=== PATIENT | female | born 1965 | race Caucasian/White ===

== ENCOUNTER 2016-05-25 14:27 | Emergency (ER) | payer OTHER, MEDICAID ==
[2016-05-25 14:33] VITALS: RESP 16
[2016-05-25] MEDS ORDERED: ONDANSETRON 4 MG/2 ML VIAL IVP ONE ×2 (16:32→18:26)
[2016-05-25 16:52] LABS: COLOR YELLOW; LEUKOCYTE ESTERASE,URINE NEGATIVE (NEGATIVE); NITRITE,URINE NEGATIVE (NEGATIVE)
[2016-05-25 16:57] LABS: RBC,URINE 25-50 /hpf (0-3)
[2016-05-25 17:13] LABS: % IMMATURE GRANULYOCYTES 0.3 % (0.0-1.1); ABSOLUTE IMMATURE GRANULOCYTES 0.02 10^3/uL (0.00-0.10); ADD DIFF? NO; ADD MORPH? NO; ADD SCAN? NO; ATYPICAL LYMPHOCYTE FLAG 10 (0-99); FRAGMENT RBC FLAG 0 (0-99); HEMOGLOBIN 15.9 g/dL (12.6-16.3); LEFT SHIFT FLG 0 (0-99); LIPEMIA HEMOLYSIS FLAG 90 (0-99); MEAN CELL HEMOGLOBIN 30.8 pg (27.9-34.1); MEAN CELL HEMOGLOBIN CONCENTR. 34.6 g/dL (32.4-36.7); MEAN CELL VOLUME 89.1 fL (81.5-99.8); MEAN PLATELET VOLUME 9.8 fL (8.7-11.7); PLATELET CLUMPS FLAG 30 (0-99); PLATELET COUNT 345 10^3/uL (150-400); RED BLOOD CELL COUNT 5.16 10^6/uL (4.18-5.33); RED CELL DISTRIBUTION WIDTH 12.4 % (11.5-15.2)
[2016-05-25] MEDS ORDERED: fentaNYL 100 MCG/2 ML INJ IVP ONE (17:20)
[2016-05-25] MEDS ORDERED: fentaNYL 100 MCG/2 ML INJ ONE (17:21)
--- NOTE | 2016-05-25 17:21 | EDPHY ---
H & P Stated Complaint: abd pain continued post surgery, reinflammed after moving objects Time Seen by Provider: 05/25/16 16:20 HPI/ROS: CHIEF COMPLAINT: Abdominal pain, chronic abdominal pain HISTORY OF PRESENT ILLNESS: 6 months of left lower quadrant abdominal pain. This was gradual onset after this a laparotomy with small-bowel resection at outside facility. This was due to Crohn's disease. She reports chronic pain in this area of 6 months with multiple evaluations without definitive diagnosis. It comes and goes but never fully resolves. It is moderate to severe. It does not radiate. It is worse with palpation and ambulation. Some improvement rest and with pain medication. Nausea but no vomiting. No pelvic pain. No vaginal bleeding or discharge. CT scan less than 2 weeks ago was reportedly normal at outside facility. No other associated complaints or modifying factors REVIEW OF SYSTEMS: Constitutional: No fever, no chills Eyes: No visual changes ENT: No sore throat or difficulty swallowing Neck: No pain or stiffness Respiratory: No cough, no shortness of breath Cardiac: No chest pain Gastrointestinal: No nausea, no vomiting, left lower abdominal pain Genitourinary: No hematuria, no dysuria Musculoskeletal: No leg pain or swelling Skin: No rash Neurological: No headache, no numbness, no weakness Psychiatric: No depression EXAMINATION: General Appearance: Alert, no distress Head: normocephalic, atraumatic Eyes: Pupils equal and round, no conjunctival pallor or injection ENT, Mouth: Mucous membranes moist Neck: Normal inspection, supple, non-tender Respiratory: Lungs are clear to auscultation Cardiovascular: Regular rate and rhythm Gastrointestinal: Abdomen is soft. with mild tenderness of the left lower quadrant. No rebound or guarding. No tympany. No rigidity. There is a well- healed surgical incision consistent with laparotomy remotely. Back: non-tender, no bony abnormalities Neurological: A&O, nonfocal, normal gait Skin: Warm and dry, no rash Extremities: Nontender, no pedal edema Psychiatric: Mood and affect normal Differential Diagnoses: 1.Chronic abdominal pain 2. colitis 3. enteritis 4. abdominal wall strain 5. UTI MDM: Chronic left lower quadrant abdominal pain over the past 6 months in a patient with Crohn's disease. Nonacute abdominal exam. No nausea or vomiting. Labs are well within normal limits. Pain is significantly improved with IV medication. Discharge home with continued oral pain medication, oral antiemetic and recommendation follow up with the primary care physician and/or surgeon for further care. Patient spouse at bedside are comfortable with this plan. ED precautions discussed as well. - Personal History LMP (Females 10-55): Post Menopausal Current Tetanus/Diphtheria Vaccine: Yes Current Tetanus Diphtheria and Acellular Pertussis (TDAP): Yes - Medical/Surgical History Hx Asthma: No Hx Chronic Respiratory Disease: No Hx Diabetes: No Hx Cardiac Disease: No Hx Renal Disease: No Hx Cirrhosis: No Hx Alcoholism: No Hx HIV/AIDS: No Hx Splenectomy or Spleen Trauma: No Other PMH: PMH:chrons. PSH:bowel resctionx3, tonsels, adnoids, gallbladder, appy - Social History Smoking Status: Never smoked Constitutional: Initial Vital Signs Temperature (C) 97.7 F 05/25/16 14:30 Heart Rate 89 05/25/16 14:30 Respiratory Rate 16 05/25/16 14:30 Blood Pressure 146/74 H 05/25/16 14:30 O2 Sat (%) 97 05/25/16 14:30 O2 Delivery Mode Room Air Allergies/Adverse Reactions: codeine Allergy (Verified 05/25/16 14:33) Home Medications: Medication Instructions Recorded Fluocinolone Acetonide, Micro 05/25/16 Ondansetron Odt [Zofran Odt 4 mg 4 mg PO Q8HRS PRN 4 Days 05/25/16 (*)] oxyCODONE HCL/ACETAMINOPHEN 1 each PO Q4-6PRN PRN #20 tablet 05/25/16 [Percocet 5-325 mg Tablet] Medical Decision Making - Data Points Laboratory Results: Laboratory Results 05/25/16 17:00 05/25/16 17:00 05/25/16 05/25/16 17:00 16:44 WBC 7.91 10^3/uL (3.80-9.50) RBC 5.16 10^6/uL (4.18-5.33) Hgb 15.9 g/dL (12.6-16.3) Hct 46.0 % (38.0-47.0) MCV 89.1 fL (81.5-99.8) MCH 30.8 pg (27.9-34.1) MCHC 34.6 g/dL (32.4-36.7) RDW 12.4 % (11.5-15.2) Plt Count 345 10^3/uL (150-400) MPV 9.8 fL (8.7-11.7) Neut % (Auto) 59.5 % (39.3-74.2) Lymph % (Auto) 30.3 % (15.0-45.0) [place] % (Auto) 7.7 % (4.5-13.0) Eos % (Auto) 1.3 % (0.6-7.6) Baso % (Auto) 0.9 % (0.3-1.7) Nucleat RBC Rel Count 0.0 % (0.0-0.2) Absolute Neuts (auto) 4.71 10^3/uL (1.70-6.50) Absolute Lymphs (auto) 2.40 10^3/uL (1.00-3.00) Absolute Monos (auto) 0.61 10^3/uL (0.30-0.80) Absolute Eos (auto) 0.10 10^3/uL (0.03-0.40) Absolute Basos (auto) 0.07 10^3/uL (0.02-0.10) Absolute Nucleated RBC 0.00 10^3/uL (0-0.01) Immature Gran % 0.3 % (0.0-1.1) Immature Gran # 0.02 10^3/uL (0.00-0.10) Sodium 144 mEq/L (134-144) Potassium 3.8 mEq/L (3.5-5.2) Chloride 106 mEq/L (97-110) Carbon Dioxide 23 mEq/l (22-31) Anion Gap 15 mEq/L (8-16) BUN 8 mg/dL (7-23) Creatinine 0.7 mg/dL (0.6-1.0) Estimated GFR > 60 Glucose 87 mg/dL (70-100) Calcium 9.5 mg/dL (8.5-10.4) Total Bilirubin 1.0 mg/dL (0.1-1.4) AST 37 IU/L (14-46) ALT 49 IU/L (9-52) Alkaline Phosphatase 122 IU/L (38-126) Total Protein 7.8 g/dL (6.3-8.2) Albumin 4.3 g/dL (3.5-5.0) Amylase 73 IU/L (30-110) Lipase 69.0 IU/L (23-300) Beta HCG, Qual NEGATIVE Urine Color YELLOW Urine Appearance CLEAR Urine pH 6.0 (5.0-7.5) Ur Specific [place] 1.008 (1.002-1.030) Urine Protein NEGATIVE (NEGATIVE) Urine Ketones NEGATIVE (NEGATIVE) Urine Blood 1+ H (NEGATIVE) Urine Nitrate NEGATIVE (NEGATIVE) Urine Bilirubin NEGATIVE (NEGATIVE) Urine Urobilinogen NEGATIVE EU (0.2-1.0) Ur Leukocyte Esterase NEGATIVE (NEGATIVE) Urine RBC 25-50 H /hpf (0-3) Urine WBC 1-3 /hpf (0-3) Ur Epithelial Cells TRACE /lpf (NONE-1+) Ur Culture Indicated? NOT INDICATED (NI) Urine Glucose NEGATIVE (NEGATIVE) Medications Given: Discontinued Medications Fentanyl (Sublimaze) 100 mcg IVP EDNOW ONE Stop: 05/25/16 17:21 Last Admin: 05/25/16 17:24 Dose: 100 mcg Morphine Sulfate (Morphine) 4 mg IVP EDNOW ONE Stop: 05/25/16 16:33 Last Admin: 05/25/16 17:05 Dose: 4 mg Ondansetron HCl (Zofran) 4 mg IVP EDNOW ONE Stop: 05/25/16 16:33 Last Admin: 05/25/16 17:04 Dose: 4 mg Departure - Departure Disposition: Home, Routine, Self-Care Clinical Impression: Abdominal pain, chronic, left lower quadrant, Crohn disease Condition: Good Instructions: Abdominal Pain (ED) Additional Instructions: follow-up with primary care physician and surgeon as discussed for further care. ED precautions as discussed Referrals: [place] STATE,. [Primary Care Provider] - As per Instructions Prescriptions: Ondansetron Odt [Zofran Odt 4 mg (*)] 4 mg PO Q8HRS PRN 4 Days PRN Reason: Nausea/Vomiting, Use 1st oxyCODONE HCL/ACETAMINOPHEN [Percocet 5-325 mg Tablet] 1 each PO Q4-6PRN PRN # 20 tablet PRN Reason: Pain, Moderate
[2016-05-25 17:28] LABS: ALANINE AMINOTRANSFERASE 49 IU/L (9-52); ALBUMIN 4.3 g/dL (3.5-5.0); ALKALINE PHOSPHATASE 122 IU/L (38-126); AMYLASE 73 IU/L (30-110); ANION GAP 15 mEq/L (8-16); ASPARTATE AMINOTRANSFERASE 37 IU/L (14-46); CALCIUM 9.5 mg/dL (8.5-10.4); CARBON DIOXIDE 23 mEq/l (22-31); CHLORIDE 106 mEq/L (97-110); CREATININE 0.7 mg/dL (0.6-1.0); GLOMERULAR FILTRATION RATE > 60; GLUCOSE 87 mg/dL (70-100); POTASSIUM 3.8 mEq/L (3.5-5.2); SODIUM 144 mEq/L (134-144); TOTAL PROTEIN 7.8 g/dL (6.3-8.2)
[2016-05-25] MEDS ORDERED: ONDANSETRON 4 MG/2 ML VIAL ONE (18:15)
[2016-05-25] MEDS ORDERED: OXYCODONE/APAP 5/325 TAB ONE (18:16)
[2016-05-25 18:26] VITALS: BP 113/75; PULSE 78; TEMP 98.2; O2SAT 95
[2016-05-25] MEDS ORDERED: OXYCODONE/APAP 5/325 TAB PO ONE (18:26)
== END 2016-05-25 18:31 | disposition home or self-care (01) ==
DX: K50.90 Crohn's disease, unspecified, without complications (principal)
CPT/HCPCS: 96374; 96375; 96376; 99284; J2405; J3010